=== PATIENT | female | born 1985 | race Caucasian/White ===

== ENCOUNTER 2020-06-01 11:32 | Emergency (ER) | payer MEDICAID ==
[~2020-06-01] VITALS: Ht 172.7 cm; Wt 58.0 kg
[2020-06-01 11:35] VITALS: BP 112/69
[2020-06-01] MEDS ORDERED: TETRACAINE 0.5% OPHTH DROPS 4ML LEFTEYE ONE (12:00)
[2020-06-01] MEDS ORDERED: FLUORESCEIN SODIUM 1MG/STRIP LEFTEYE ONE (12:30)
[2020-06-01] MEDS ORDERED: CIPR2.5D13 LEFTEYE (12:49)
[2020-06-01] MEDS ORDERED: NAPR-1176 MT (12:49)
== END 2020-06-01 12:59 | disposition home or self-care (01) ==
LOC: ER 11:58
DX: H18.822 Corneal disorder due to contact lens, left eye (principal)
CPT/HCPCS: 99283